=== PATIENT | male | born 1960 | race Caucasian/White ===

== ENCOUNTER 2024-11-19 10:43 | Outpatient (OUT) | payer OTHER, SELFPAY ==
--- NOTE | 2024-11-19 11:52 | PC.NURSE ---
Nursing Note Cardiac Stress Test Reviewed: Medication, allergies and patient history reviewed. Stress Test: [ x] Patient tolerated stress test well. [ ] Patient unable to tolerate walking on treadmill. Switched to Lexiscan stress test. [x ] No chest pain noted per patient [ ] Chest pain that resolved prior to leaving stress lab. [ ] No dyspnea noted. [ x] Dyspnea that resolved prior to leaving stress lab. [ x] Patient left stress lab asymptomatic and hemodynamically stable. [ ] Patient taken to the Emergency Room due to non-resolving symptoms following stress test. [x ] Patient achieved target heart rate. [ ] Patient unable to achieve target heart rate. [ ] Aminophylline administered as reversal agent to Lexiscan (Regadenoson). [ ] Nitro administered. Nursing Comments:Pt had regular TM stress test done. Tolerated well and only complaint was SOB and calf pain that resolved within 3-4 minutes of rest. Pt left stress lab asymptomatic.
--- NOTE | 2024-11-19 13:54 | PM.STRESS ---
Stress Test Stress Test Requesting physician: BELLO KLINE Procedure: This was a Treadmill stress test performed at the [facility] on 11/19/2024. The patient was attached to electrocardiographic monitoring. Baseline vital signs and ECG were obtained. The patient exercised on the treadmill according to the Dequan protocol. Exercise time was 6 minutes and 12 seconds. The patient reached stage III of the Dequan protocol and achieved 7.6 METS. The test was terminated due to target heart rate being achieved. Resting heart rate was 76 bpm and peak heart rate was 155 bpm representing 98% of maximal predicted heart rate. Resting blood pressure was 140/70 and peak blood pressure was 158/80. General Information: Reason for Stress Test: Chest pain. Cardiac History and Risk Factors: Hypertension. Resting 12 - Lead Electrocardiogram: Normal sinus rhythm, no ischemic ST changes. Stress Test: Protocol: Dequan protocol. Exercise Capacity: Average. Blood Pressure Response: Resting hypertension, normal blood pressure response to exercise. Rhythm: Sinus rhythm with frequent PVCs seen during treadmill exercise test. PVCs resolved during recovery. ST - Response: No ischemic ST changes seen. Patient Response: No chest pain or shortness of breath. Interpretation: 1. Negative exercise stress test for ischemic ECG changes. 2. Reese treadmill score of +6 is associated with low risk for long-term cardiac events.
== END 2024-11-19 10:44 | disposition home or self-care (01) ==
LOC: CARD 10:51
PROVIDERS: PCP Family Medicine; Visit Provider Family Medicine
DX: R07.2 Precordial pain (principal); I10 Essential (primary) hypertension; E78.00 Pure hypercholesterolemia, unspecified
CPT/HCPCS: 93017